=== PATIENT | female | born 1980 ===

== ENCOUNTER 2017-10-11 22:28 | Emergency (ER) | payer OTHER ==
[~2017-10-11] VITALS: Ht 160 cm; Wt 90.0 kg
[2017-10-11 22:40] VITALS: Ht 160 cm; Wt 90.0 kg
[2017-10-12] MEDS ORDERED: ACETAMINOPHEN 325 MG TAB PO ONE (00:30)
[2017-10-12] MEDS ORDERED: IBUPROFEN 600 MG TAB PO ONE (00:30)
--- NOTE | 2017-10-12 00:52 | ERD ---
ER Documentation Chief Complaint Chief Complaint Cough, congestion x 2 week, fever, headache HPI 36-year-old female presents here to emergency department for complaints of cough congestion for 2 weeks. Patient has been having on and off fever headache , patient did not take any medications to help with symptoms. Patient also is complaining of chest pain with coughing. Patient did not take any medications of symptoms. Patient denies any dizziness ROS All systems reviewed and are negative except as per history of present illness. Medications Home Meds Active Scripts Ferrous Sulfate* (Ferrous Sulfate*) 325 Mg Tabec, 325 MG PO BID, #60 TAB Prov:SHAHID BECKWITH NP 10/12/17 Cquvqbpplzv-E-Vtpdolcacr Hb* (Guaifenesin* DM Syrup) 120 Ml Syrup, 10 ML PO Q4H Y for COUGH, #120 ML Prov:SHAHID BECKWITH NP 10/12/17 Acetaminophen* (Tylophen*) 500 Mg Capsule, 1 CAP PO Q6H Y for PAIN AND OR ELEVATED TEMP, #20 CAP Prov:SHAHID BECKIWTH NP 10/12/17 Ibuprofen* (Motrin*) 600 Mg Tab, 600 MG PO Q6H Y for PAIN AND OR ELEVATED TEMP, #30 TAB Prov:SHAHID BECKWITH NP 10/12/17 Azithromycin* (Zithromax*) 250 Mg Tablet, 250 MG PO .ZPACK DIRECTED, #6 TAB TAKE 500 MG (2 TABS) THE FIRST DAY THEN 250 MG (1 TAB) DAYS 2-5 Prov:SHAHID BECKWITH NP 10/12/17 Reported Medications [none] Unknown Strength No Conflict Check 10/12/17 Allergies Allergies: Coded Allergies: No Known Allergy (Unverified , 10/11/17) PMhx/Soc History of Surgery: Yes () Anesthesia Reaction: No Hx Neurological Disorder: No Hx Respiratory Disorders: No Hx Cardiac Disorders: No Hx Psychiatric Problems: No Hx Miscellaneous Medical Probl: Yes (Lupus) Hx Alcohol Use: No Hx Substance Use: No Hx Tobacco Use: No Smoking Status: Never smoker FmHx Family History: No coronary disease, No diabetes, No other Physical Exam Vitals Vital Signs Date Time Temp Pulse Resp B/P Pulse Ox O2 Delivery O2 Flow Rate FiO2 10/12/17 02:41 99.4 20 134/98 99 10/11/17 22:40 101.8 107 20 134/98 99 Physical Exam GENERAL: The patient is well developed and appropriate for usual state of health, in no apparent distress. CHEST: Clear to auscultation bilaterally. There are no rales, wheezes or rhonchi. HEART: Regular rate and rhythm. No murmurs, clicks, rubs or gallops. No S3 or S4. ABDOMEN: Soft, nontender and nondistended. Good bowel sounds. No rebound or guarding. No gross peritonitis. No gross organomegaly or masses. No Schmid sign or McBurney point tenderness. BACK: No midline or flank tenderness. EXTREMITIES: Equal pulses bilaterally. There is no peripheral clubbing, cyanosis or edema. No focal swelling or erythema. Full range of motion. Grossly neurovascularly intact. NEURO: Alert and oriented. Cranial nerves 2-12 intact. Motor strength in all 4 extremities with 5/5 strength. Sensation grossly intact. Normal speech and gait. SKIN: There is no apparent rash or petechia. The skin is warm and dry. HEMATOLOGIC AND LYMPHATIC: There is no evidence of excessive bruising or lymphedema. No gross cervical, axillary, or inguinal lymphadenopathy. Result Diagram: 10/12/17 0105 10/12/17 0105 Results 24 hrs Laboratory Tests Test 10/12/17 01:05 White Blood Count 5.810^3/ul Red Blood Count 2.7710^6/ul Hemoglobin 7.8g/dl Hematocrit 25.3% Mean Corpuscular Volume 91.3fl Mean Corpuscular Hemoglobin 28.2pg Mean Corpuscular Hemoglobin Concent 30.8g/dl Red Cell Distribution Width 14.2% Platelet Count 56434^3/UL Mean Platelet Volume 8.9fl Neutrophils % % Segmented Neutrophils % (Manual) 64% Band Neutrophils % (Manual) 3% Lymphocytes % % Lymphocytes % (Manual) 25% Monocytes % % Monocytes % (Manual) 4% Eosinophils % % Basophils % % Metamyelocytes % (manual) 3% Myelocytes % (Manual) 1% Nucleated Red Blood Cells % 0.5/100WBC Neutrophils # 10^3/ul Neutrophils # (Manual) 3.710^3/ul Band Neutrophils # 0.110^3/ul Absolute Lymphocytes (Manual) 1.410^3/ul Lymphocytes # 10^3/ul Monocytes # 10^3/ul Absolute Monocytes (Manual) 0.210^3/ul Eosinophils # 10^3/ul Basophils # 10^3/ul Metamyelocytes # 0.110^3/ul Myelocytes # 0.010^3/ul Nucleated Red Blood Cells # 10^3/ul Platelet Estimate INCREASED Polychromasia 2+ Poikilocytosis 1+ Anisocytosis 1+ Microcytosis 1+ Sodium Level 138mmol/L Potassium Level 4.2mmol/L Chloride Level 107mmol/L Carbon Dioxide Level 26mmol/L Anion Gap 9 Blood Urea Nitrogen 20mg/dl Creatinine 1.02mg/dl Glucose Level 87mg/dl Calcium Level 8.1mg/dl Troponin I < 0.012ng/ml Current Medications Medications (Trade) Dose Ordered Sig/Radha Route PRN Reason Start Time Stop Time Status Last Admin Dose Admin Acetaminophen (Tylenol Tab) 650 mg ONCE ONCE PO 10/12/17 00:30 10/12/17 00:31 DC 10/12/17 00:54 Ibuprofen (Motrin) 600 mg ONCE ONCE PO 10/12/17 00:30 10/12/17 00:31 DC 10/12/17 00:54 Patient was given medicines for fever control here in the emergency department. After treatment, patient temperature improved and lower. Patient appears well and is hemodynamically stable. PROCEDURE: XR Chest. CLINICAL INDICATION: Cough and chest pain. TECHNIQUE: Single frontal view of the chest. COMPARISON: None. FINDINGS: Cardiomegaly. Mild bibasilar atelectasis. The lungs otherwise clear. No signs of pleural fluid or pneumothorax are seen. The osseous structures and soft tissues are unremarkable. IMPRESSION: Mild bibasilar atelectasis. RPTAT: [facility] Physician Marce Date Time Electronically viewed and signed by Physician Marce on 10/12/2017 01:03 RS/ CC: SHAHID BECKWITH NP EKG was done, read by me and is normal sinus rhythm at a rate of 100 bpm_, normal axis, there is no ST changes or changes in the EKG that indicates any cardiac emergencies at this time. Patient's EKG was also reviewed by Dr. Vargas. Impression: no acute findings on EKG PROCEDURE: XR Chest. CLINICAL INDICATION: Cough and chest pain. TECHNIQUE: Single frontal view of the chest. COMPARISON: None. FINDINGS: Cardiomegaly. Mild bibasilar atelectasis. The lungs otherwise clear. No signs of pleural fluid or pneumothorax are seen. The osseous structures and soft tissues are unremarkable. IMPRESSION: Mild bibasilar atelectasis. RPTAT: [facility] Douglas Villar Physician Date Time Electronically viewed and signed by Douglas Villar Physician on 10/12/2017 01:03 RS/ CC: SHAHID BECKWITH [employer] O[employer] Procedures/MDM Medical Decision Making: Patient symptoms are most likely consistent with bronchitis, possibly caused by atypical infection.. There is low suspicion for Pneumonia at this time since patients lungs sounds are clear, patient O2 saturation is normal and patient doesnt show any respiratory distress. Patient s chest xray doesnt show infiltrates or any other cardiopulmonary emergencies at this time. There is low suspicion for other cardiopulmonary emergencies at this time such as CHF, Pulmonary Embolism, Pneumothorax, Aortic Aneurysm or any other cardiopulmonary emergencies at this time. There is low suspicion for sepsis. Patient appears well and is hemodynamically stable. Fever is controlled with medicines. Patient has anemia also, but completely asymptomatic , no bleeding symptoms at this time. Disposition: Home. Condition: Stable Prescriptions: Azithromycin, guaifenesin with codeine, Zyrtec, ibuprofen, Tylenol, ferrous sulfate. Instructions: Patient is advised to take medications as prescribed. Patient is advised to rest. Patient advised to increase fluid intake, do humidifier at home and if possible, do salt water gargles. Patient is advised that if symptoms are worse, shortness of breath, uncontrolled fever, stridor, vomiting, worst signs and symptoms to return to emergency department immediately. Otherwise, patient is advised to follow up with primary doctor in 5-7 days. Advised to follow-up with primary care doctor for further management of your anemia. Disclaimer: Inadvertent spelling and grammatical errors are likely due to EHR/ dictation software use and do not reflect on the overall quality of patient care. Also, please note that the electronic time recorded on this note does not necessarily reflect the actual time of the patient encounter. Departure Diagnosis: Primary Impression: Acute bronchitis Bronchitis organism: unspecified organism Qualified Code: J20.9 - Acute bronchitis, unspecified organism Additional Impression: Microcytic anemia Condition: Stable Patient Instructions: Anemia, Iron Deficiency (Adult), Bronchitis, Antiobiotic Treatment (Adult) Additional Instructions: Patient is advised to take medications as prescribed. Patient is advised to rest. Patient advised to increase fluid intake, do humidifier at home and if possible, do salt water gargles. Patient is advised that if symptoms are worse, shortness of breath, uncontrolled fever, stridor, vomiting, worst signs and symptoms to return to emergency department immediately. Otherwise, patient is advised to follow up with primary doctor in 5-7 days. Advised to follow-up with primary care doctor for further management of your anemia. SHAHID BECKWITH NP Oct 12, 2017 00:52
--- NOTE | 2017-10-12 01:03 | RADRPT ---
PROCEDURE: XR Chest. CLINICAL INDICATION: Cough and chest pain. TECHNIQUE: Single frontal view of the chest. COMPARISON: None. FINDINGS: Cardiomegaly. Mild bibasilar atelectasis. The lungs otherwise clear. No signs of pleural fluid or pn eumothorax are seen. The osseous structures and soft tissues are unremarkable. IMPRESSION: Mild bibasilar atelectasis. RPTAT: [facility] Physician Marce Date Time Electronically viewed and signed by Physician Marce on 10/12/2017 01:03 RS/
[2017-10-12 01:30] LABS: ABNORMAL IP MESSAGE 1; HEMATOCRIT 25.3 % (37.0-47.0); HEMOGLOBIN 7.8 g/dl (12.0-16.0); MEAN CORPUSCULAR HEMOGLOBIN 28.2 pg (29.0-33.0); MEAN CORPUSCULAR HGB CONC 30.8 g/dl (32.0-37.0); MEAN CORPUSCULAR VOLUME 91.3 fl (82.0-101.0); MEAN PLATELET VOLUME 8.9 fl (7.4-10.4); NUCLEATED RED BLOOD CELLS% 0.5 /100WBC (0.0-0.0); PLATELET COUNT 545 10^3/UL (140-415); RED BLOOD COUNT 2.77 10^6/ul (4.20-5.40); RED CELL DISTRIBUTION WIDTH 14.2 % (11.5-14.5); WHITE BLOOD COUNT 5.8 10^3/ul (4.8-10.8)
[2017-10-12 01:49] LABS: ANION GAP 9 (8-16); BLOOD UREA NITROGEN 20 mg/dl (7-20); CALCIUM 8.1 mg/dl (8.4-10.2); CARBON DIOXIDE 26 mmol/L (21-31); CHLORIDE 107 mmol/L (97-110); CREATININE 1.02 mg/dl (0.44-1.00); GLUCOSE 87 mg/dl (70-220); POTASSIUM 4.2 mmol/L (3.5-5.1); SODIUM 138 mmol/L (135-144)
[2017-10-12 02:01] LABS: TROPONIN-I < 0.012 ng/ml (0.00-0.12)
[2017-10-12 02:07] LABS: POSITIVE DIFF @See below
[2017-10-12 02:24] LABS: ANISOCYTOSIS 1+ (0-0); METAMYELOCYTES %M 3 % (0-0); MICROCYTOSIS 1+ (0-0); MONOCYTES % (M) 4 % (0-11); MYELOCYTES % (M) 1 % (0-0); PLATELET ESTIMATE INCREASED; POIKILOCYTOSIS 1+ (0-0); POLYCHROMASIA 2+ (0-0)
[2017-10-12] MEDS ORDERED: FER325 PO (02:32)
[2017-10-12] MEDS ORDERED: GUAI120S26 PO (02:32)
[2017-10-12] MEDS ORDERED: AZIT250T94 PO (02:32)
[2017-10-12] MEDS ORDERED: IBUP-1542 PO (02:32)
[2017-10-12] MEDS ORDERED: ACET500C5 PO (02:32)
[2017-10-12 02:41] VITALS: BP 134/98; RESP 20; TEMP 99.4
== END 2017-10-12 02:52 | disposition home or self-care (01) ==
LOC: FTE 22:28
DX: J20.9 Acute bronchitis, unspecified (principal); D50.9 Iron deficiency anemia, unspecified; R07.9 Chest pain, unspecified
CPT/HCPCS: 36415; 71010; 80048; 84484; 85025; Z7502; Z7610; 93005